=== PATIENT | male | born 1975 | race Caucasian/White ===

== ENCOUNTER 2023-07-31 12:26 | Outpatient (CLI) | payer BC | END 2023-07-31 12:27 | disposition home or self-care (01) | LOC: CSHMRI 12:26 | PROVIDERS: ATTEND Specialist | DX: M47.26 Other spondylosis with radiculopathy, lumbar region (principal); Q76.49 Other congenital malformations of spine, not associated with scoliosis; M89.8X8 Other specified disorders of bone, other site | CPT/HCPCS: 72148 ==